=== PATIENT | female | born 1955 | race Caucasian/White ===

== ENCOUNTER 2020-10-28 14:07 | Emergency (ER) | payer MEDICARE ==
[~2020-10-28] VITALS: Ht 152.4 cm; Wt 39.5 kg
--- NOTE | 2020-10-28 14:29 | NUR ---
ARRIVAL PT ARRIVED TO ED WITH C/O LLQ PAIN. PT REPORTS THAT SHE WAS HAVING DIARRHEA/VOMITTING AND COUGH FOR A FEW DAYS, WAS SEEN BY HER PCP YESTERDAY AND HAD BLOOD WORK AND COVID TESTING PERFORMED. COVID TEST WAS NEGATIVE AT DR SINGH OFFICE IN [place]. PT RECEIVED CALL FROM PCP TODAY AND WAS INSTRUCTED TO GO ER D/T PANCREASE/LIVER PROBLEMS. PT HAS TENDERNESS TO LLQ TENDERNESS WITH PALPATION. PT STATES SHE HAS NOT HAD ANY DIARRHEA/VOMITTING/COUGH FOR SEVERAL DAYS. BEDSIDE MONITORS APPLIED. VITAL SIGNS STABLE. BED IN LOW LOCKED POSITION. SPOUSE AT BEDSIDE.
[2020-10-28 14:35] VITALS: BP 131/64
--- NOTE | 2020-10-28 14:37 | ER.PDOC ---
General Chief Complaint: Requesting Medical Care Stated Complaint: ABD PAIN Time seen by MD: 14:37 Source: patient Exam Limitations: no limitations History of Present Illness Initial Comments PATIENT PRESENTS FOR EVALUATION OF ABDOMINAL PAIN, VOMITING AND DIARRHEA. SHE WAS SEEN IN CLINIC YESTERDAY AND TESTED FOR COVID DUE TO HER SX. SHE WAS SEEN BACK IN CLINIC TODAY AND INFORMED THAT THE COVID WAS NEGATIVE AND HAD CHEST AND ABD XRAYS AND LABS DRWN. SHE WENT HOME AND WAS EATING WHEN SHE WAS CALLED BY THE OFFICE AND TOLD "MY PANCREAS IS SHUTTING DOWN AND I NEED TO GO TO THE ER". SHE HAS NOT HAD VOMITING OR DIARRHEA IN OVER 24 HOURS. HER ONLY COMPLAINT IS LLQ PAIN THAT IS 8/10 AND FEELS LIKE LABOR. NO FEVER OR CHILLS. NO CHEST PAIN OR SOB. NO URINARY COMPLAINTS. NO PRIOR ABD SURGURIES Allergies: Coded Allergies: No Known Allergies (Unverified , 10/28/20) Home Meds Reported Medications Cyanocobalamin (Vitamin B-12) (B-12) 500 Mcg Tablet, 500 MCG PO TID, TAB 10/28/20 Folic Acid (FOLIC ACID) 20 Mg Capsule, 20 MG PO TID, CAPSULE 10/28/20 Cordova-3 Fatty Acids/Fish Oil (FISH OIL 1,000 MG SOFTGEL) 1 Each Capsule, 1 EACH PO TID, CAPSULE 10/28/20 Trazodone Hcl (TRAZODONE HCL) 50 Mg Tablet, 50 MG PO HS, TAB 10/28/20 Metoprolol Tartrate 25MG (LOPRESSER 25MG) 25 Mg Tablet, 25 MG PO BID for HYPERTENSION, #60 TAB 10/28/20 Amlodipine Besylate (AMLODIPINE BESYLATE) 5 Mg Tablet, 5 MG PO DAILY24, TAB 10/28/20 Vital Signs First Vital Signs Date Time Temp Pulse Resp B/P (MAP) Pulse Ox O2 Delivery O2 Flow Rate FiO2 10/28/20 14:35 98.5 90 16 99 10/28/20 14:35 131/64 (86) Room Air Last Vital Signs Date Time Temp Pulse Resp B/P (MAP) Pulse Ox O2 Delivery O2 Flow Rate FiO2 10/28/20 17:06 98.5 84 16 112/57 (75) 93 Room Air Reviewed Nursing Reviewed: Vital Signs, Abn. Noted, Nursing Assessment Constitutional: no symptoms reported EENTM: no symptoms reported Respiratory: see HPI Cardiovascular: see HPI Gastrointestinal: see HPI Genitourinary: see HPI All Other Systems: Reviewed and Negative Physical Exam General Appearance: No Apparent Distress (FRAIL) HEENT: PERRL/EOMI, Normal ENT Inspection, Pharynx Normal Neck: Non-Tender, Full Range of Motion Respiratory: chest non-tender, lungs clear, normal breath sounds, no respiratory distress Cardiovascular: Normal Peripheral Pulses, Regular Rate, Rhythm, No Edema Gastrointestinal: Distended, Guarding (llq), Tenderness Back: Normal Inspection, No CVA Tenderness Extremities: Normal Range of Motion, Non-Tender Neurologic/Psychiatric: No Motor/Sensory Deficits Skin: Normal Color, Warm/Dry Results/Orders Results/Orders Orders - ARVIN NEAL MD Cbc With Auto Diff (10/28/20 14:38) Comprehensive Metabolic Panel (10/28/20 14:38) Lipase (10/28/20 14:38) Amylase (10/28/20 14:38) Urinalysis (10/28/20 14:38) Start Iv Heplock (10/28/20 14:38) Urine Culture (10/28/20 14:37) Lactic Acid(Ml) (10/28/20 14:58) Blood Culture (10/28/20 14:58) 0.9 % Sodium Chloride (Ns 1000ml) (10/28/20 14:58) Morphine Sulfate (Morphine Sulfate) (10/28/20 14:58) Ondansetron Hcl/Pf (Zofran) (10/28/20 14:58) Levofloxacin 750mg/D5w 100ml (Levaquin) (10/28/20 15:00) 0.9 % Sodium Chloride (Ns 1000ml) (10/28/20 15:43) Ondansetron Hcl/Pf (Zofran) (10/28/20 15:43) Levofloxacin 750mg/D5w 100ml (Levaquin) (10/28/20 15:43) Morphine Sulfate (Morphine Sulfate) (10/28/20 15:43) Ct Abd/Pelvis Wo Iv Contrast (10/28/20 15:23) Vital Signs Date Time Temp Pulse Resp B/P (MAP) Pulse Ox O2 Delivery O2 Flow Rate FiO2 10/28/20 17:06 98.5 84 16 112/57 (75) 93 Room Air 10/28/20 14:35 98.5 90 16 131/64 (86) 99 Room Air 10/28/20 14:35 98.5 90 16 10/28/20 14:35 98.5 90 16 99 Administered Medications Medications (Trade) Dose Ordered Sig/Darion Route PRN Reason Start Time Stop Time Status Last Admin Dose Admin Levofloxacin/ Dextrose 150 ml @ 100 mls/hr Q24HRS ONCE IV 10/28/20 15:00 10/28/20 16:29 DC 10/28/20 15:52 100 MLS/HR Morphine Sulfate (Morphine Sulfate) 4 mg STAT STAT IV 10/28/20 14:58 10/28/20 15:01 DC 10/28/20 15:51 4 MG Ondansetron HCl (Zofran) 4 mg STAT STAT IV 10/28/20 14:58 10/28/20 15:01 DC 10/28/20 15:52 4 MG Sodium Chloride 1,184 ml @ 592 mls/hr OT STAT IV 10/28/20 14:58 10/28/20 16:57 DC 10/28/20 15:52 592 MLS/HR Laboratory Tests Test 10/28/20 14:37 10/28/20 15:16 White Blood Count 19.3 10^3/uL (4.5-11.0) H Red Blood Count 3.98 10^6/uL (4.00-5.20) L Hemoglobin 12.9 g/dL (12.0-15.0) Hematocrit 35.5 % (36.0-46.0) L Mean Corpuscular Volume 89.2 fL (78-100) Mean Corpuscular Hemoglobin 32.4 pg (26-34) Mean Corpuscular Hemoglobin Concent 36.3 g/dL (33-36.5) Red Cell Distribution Width 12.8 % (11.5-14.5) Platelet Count 239 10^3/uL (150-400) Mean Platelet Volume 8.6 fL (7.8-11.0) Neutrophils (%) (Auto) 90.4 % (41.0-85.0) *H Lymphocytes (%) (Auto) 3.8 % (24.0-44.0) *L Monocytes (%) (Auto) 5.2 % (5.0-12.0) Neutrophils # (Auto) 17.4 10^3/uL (1.8-7.7) H Lymphocytes # (Auto) 0.74 10^3/uL1 (1.0-4.8) L Monocytes # (Auto) 1.0 10^3/uL (0.3-0.8) H Absolute Immature Granulocyte (auto 0.08 10^3 u/L (0-2) Absolute Eosinophils (auto) 0.0 10^3/uL (0.0-0.2) Immature Granulocytes % 0.40 % (0.00-0.50) Eosinophils % 0.1 % (0.0-5.0) Basophils % 0.1 % (0.0-0.2) Basophils # 0.0 10^3/uL (0.0-0.1) Urine Collection Type VOID Urine Color YELLOW (YELLOW) Urine Appearance CLOUDY (CLEAR) H Urine Bilirubin NEGATIVE MG/DL (NEGATIVE) Urine Ketones NEGATIVE (NEGATIVE) Urine Specific [place] 1.015 (1.005-1.035) Urine pH 5.0 (5.0-6.0) Urine Protein 30 mg/dL (NEGATIVE) H Urine Urobilinogen NORMAL (NEGATIVE) Urine Nitrate NEGATIVE (NEGATIVE) Urine Leukocyte Esterase SMALL (NEGATIVE) Urine Blood TRACE (NEGATIVE) Urine RBC 2-5 RBC/HPF (NONE SEEN) Urine WBC TNTC WBC/HPF (0-2) H Urine Squamous Epithelial Cells FEW #/HPF (FEW) Urine Bacteria MANY (NONE SEEN) H Urine Glucose NORMAL (NEGATIVE) Sodium Level 122 mmol/L (132-145) L Potassium Level 3.7 mmol/L (3.6-5.2) Chloride Level 85.0 mmol/L (96-109) L Carbon Dioxide Level 28.2 mmol/L (20.0-32) Anion Gap 12.5 Blood Urea Nitrogen 55 mg/dL (7-18) H Creatinine 2.40 mg/dL (0.59-1.40) *H Estimated GFR () 24.4 (>/=60) Est GFR (CKD-EPI)(Non-Afr New Zealander) 20.2 (>/=60) BUN/Creatinine Ratio 22.0 Glucose Level 85 mg/dL (70-110) Calcium Level 9.2 mg/dL (8.4-10.5) Total Bilirubin 1.5 mg/dL (0.2-1.0) H Aspartate Amino Transferase (AST) 119 U/L (0-35) H Alanine Aminotransferase (ALT) 158 U/L (12-78) H Alkaline Phosphatase 200 U/L (50-136) H Total Protein 7.9 g/dL (6.4-8.2) Albumin 3.6 g/dL (3.4-5.0) Globulin 4.3 Albumin/Globulin Ratio 0.837 Amylase Level 594 U/L (25-115) H Lipase 1345 U/L (114-286) H Lactic Acid Level 1.1 mmol/L (0.5-1.9) Progress Progress The patients labs and imaging reveal multiple abnormalities including acute renal failure, acute pancreatitis, UTI, hyponatremia/hypochloremia and possible acute cholecystitis. The CT had shown a gallbladder with mild thickening and mildly prominent common hepatic and common bile duct. On exam the patient is not tender in the RUQ and has Negative [place]. The patient was discussed with the hospitalist and despite her not clinically having evidence of cholecystitis, he was not able to admit her as he believed she would need ERCP for further evaluation which can not be done here. She was discussed with the [facility] Transfer Line and is currently on the Wait List. Other facilities will be contacted for possible transfer. The patient was accepted by Dr Baez at [facility] for transfer. The patient and her do not wish to be transferred via Ambulance. They understand that the patient could decompensate en route. [facility] recommended that the IV remain in place ER DEPART Departure Time of Disposition: 18:18 Disposition: 02 XFER SHT-TRM HOSP Impression: Primary Impression: Acute renal failure Additional Impressions: Acute pancreatitis UTI (urinary tract infection) Hyponatremia Choledocholithiasis with cholecystitis Condition: Stable Referrals: LEANDRO MIN (PCP) PRIMARY CARE PROVIDER Duration or Time Spent with Pa: 25 Problem Qualifiers Additional Impressions: ARVIN NEAL MD Oct 28, 2020 14:37
[2020-10-28 14:46] LABS: BASOPHIL % 0.1 % (0.0-0.2); EOSINOPHIL % 0.1 % (0.0-5.0); LYMPHOCYTES # 0.74 10^3/uL1 (1.0-4.8); LYMPHOCYTES % 3.8 % (24.0-44.0); MEAN CORP HGB 32.4 pg (26-34); MONOCYTES % 5.2 % (5.0-12.0); NEUTROPHIL # 17.4 10^3/uL (1.8-7.7); NEUTROPHILS % 90.4 % (41.0-85.0); PLATELET COUNT 239 10^3/uL (150-400); RED CELL DISTRIBUTION WIDTH 12.8 % (11.5-14.5)
[2020-10-28 14:53] LABS: APPEARANCE,URINE CLOUDY (CLEAR); BILIRUBIN,URINE NEGATIVE (NEGATIVE); UA COLOR YELLOW (YELLOW); UROBILINOGEN,URINE NORMAL (NEGATIVE)
[2020-10-28] MEDS ORDERED: MORPHINE SULFATE IV STA (14:58)
[2020-10-28] MEDS ORDERED: ZOFRAN IV STA (14:58)
[2020-10-28] MEDS ORDERED: NS IV STA (14:58)
[2020-10-28] MEDS ORDERED: LEVAQUIN 150 ML IV ONE ×2 (15:00→15:43)
[2020-10-28 15:15] LABS: CALCIUM 9.2 mg/dL (8.4-10.5); CARBON DIOXIDE 28.2 mmol/L (20.0-32)
--- NOTE | 2020-10-28 15:18 | NUR ---
critical lab CHLORIDE 85, DOCTOR ÁNGEL NOTIFIED
[2020-10-28] MEDS ORDERED: MORPHINE SULFATE ONE (15:43)
[2020-10-28] MEDS ORDERED: NS 1000ML 2,000 ML ONE (15:43)
[2020-10-28] MEDS ORDERED: ZOFRAN ONE (15:43)
--- NOTE | 2020-10-28 15:57 | NUR ---
CT PT TAKEN TO CT.
[2020-10-28] MEDS ORDERED: CYAN500T16 PO (16:03)
[2020-10-28] MEDS ORDERED: OMEG1CAP22 PO (16:03)
[2020-10-28] MEDS ORDERED: AMLO-169 PO (16:03)
[2020-10-28] MEDS ORDERED: METO25TA4 PO (16:03)
[2020-10-28] MEDS ORDERED: FOLI20CA PO (16:03)
[2020-10-28] MEDS ORDERED: TRAZ-163 PO (16:03)
--- NOTE | 2020-10-28 16:54 | DIREP ---
PROCEDURE:CT ABDOMEN/PELVIS W/O CONTRAST COMPARISON:None. INDICATIONS:LLQ pain TECHNIQUE:Axial images were created through the abdomen and pelvis without intravenous contrast material. No oral contrast was administered. Sagittal and coronal reconstructions were performed from source images. FINDINGS: LUNG BASES:No suspicious airspace consolidation or pleural effusion. LIVER:No suspicious focal hepatic lesion. BILIARY:There is at least 1 calculus within the dependent aspect of the gallbladder with suspected additional small calculi within the region of the cystic duct and distal common bile duct. The gallbladder is not significantly distended; however, there is subtle gallbladder wall thickening. There is no significant intrahepatic biliary ductal dilatation; however, the common hepatic and common bile ducts are slightly prominent. PANCREAS:Mild diffuse fat stranding surrounding the pancreas, consistent with acute pancreatitis. SPLEEN:The spleen is not significantly enlarged. No focal splenic lesion identified. ADRENALS:No suspicious adrenal abnormality. URINARY TRACT:Bilateral renal vascular calcifications. Nephrolithiasis is not excluded. No ureteral calculi or hydronephrosis. AORTA/VASCULAR:Fairly diffuse atherosclerotic calcifications without aneurysmal dilatation. RETROPERITONEUM:Nonspecific mildly prominent retroperitoneal lymph nodes may be reactive. BOWEL/MESENTERY:No evidence for small bowel obstruction. No gross colonic abnormality. Normal appendix. No free air. ABDOMINAL WALL:No significant hernia. PELVIC ORGANS:The urinary bladder is nondistended. There is hazy bladder wall thickening which may reflect the nondistended state versus potential urinary tract infection in the appropriate clinical setting. The uterus is not enlarged for the patient's age. Adnexal regions appear within acceptable limits. Trace free fluid within the pelvis. BONES:Degenerative changes of the spine. No acute abnormality. CONCLUSION: 1. Acute pancreatitis is likely secondary to choledocholithiasis as there is cholelithiasis with apparent small calculi within the cystic and distal common bile ducts as well. There is subtle gallbladder wall thickening and concomitant early acute cholecystitis cannot be excluded. Suggest correlation with serum lipase and further evaluation with dedicated right upper quadrant ultrasound as clinically warranted. 2. Suboptimally distended urinary bladder with hazy bladder wall thickening. This may reflect the nondistended state versus potential urinary tract infection. Please correlate with urinalysis if this has not already been performed. 3. Additional findings as discussed above. Dictated by: Torres Angulo M.D. On 10/28/2020 at 04:39 PM
[2020-10-28 17:06] VITALS: BP 112/57
--- NOTE | 2020-10-28 17:07 | NUR ---
DR JULIET NEAL ON THE PHONE WITH DR CHUNG.
--- NOTE | 2020-10-28 17:12 | NUR ---
[facility] DOCTOR ÁNGEL ON THE PHONE WITH [facility], DECLINE TRANSFER AT THIS TIME, CURRENTLY FULL BUT COULD HAVE BEDS AVAILABLE LATER, CAN PUT PATIENT ON A WAITING LIST.
--- NOTE | 2020-10-28 18:18 | NUR ---
[facility]PETACE CHRISTINE MAYA, DR GONZALEZ.
--- NOTE | 2020-10-28 18:19 | NUR ---
POV PT REQUESTED TO GO TO [facility] POV. DR NEAL APPROVED POV TRANSPORT.
--- NOTE | 2020-10-28 18:20 | NUR ---
REPORT REPORT CALLED TO [facility].
== END 2020-10-28 18:24 | disposition short-term general hospital (02) ==
LOC: ER 14:07
DX: K80.40 Calculus of bile duct with cholecystitis, unspecified, without obstruction (principal); K85.90 Acute pancreatitis without necrosis or infection, unspecified; E87.1 Hypo-osmolality and hyponatremia; N17.9 Acute kidney failure, unspecified; N39.0 Urinary tract infection, site not specified; Z79.899 Other long term (current) drug therapy
CPT/HCPCS: 36415; 74176; 80053; 81000; 82150; 83605; 83690; 85025; 87040 ×2; 87086; 96365; 96375; 99285; J1956; J2270; J2405; J7030; 87077; 87186